=== PATIENT | male | born 1955 | race Caucasian/White ===

== ENCOUNTER 2017-02-14 00:16 | Observation (INO) | payer SELFPAY ==
[2017-02-14 00:42] LABS: RED BLOOD COUNT 4.6 M/UL (4.20-5.50); WHITE BLOOD COUNT 13.6 K/UL (4.5-11.0)
[2017-02-14 00:49] LABS: BUN/CREATININE RATIO 21 (0-10)
== END 2017-02-14 05:10 | disposition short-term general hospital (02) ==
LOC: ER1 00:16 → ZEROF 03:27
PROVIDERS: Family Medicine; ADMIT Internal Medicine
DX: R07.9 Chest pain, unspecified (principal); M54.9 Dorsalgia, unspecified; I10 Essential (primary) hypertension; F17.210 Nicotine dependence, cigarettes, uncomplicated; J44.9 Chronic obstructive pulmonary disease, unspecified; Z79.02 Long term (current) use of antithrombotics/antiplatelets; Z79.891 Long term (current) use of opiate analgesic; Z79.899 Other long term (current) drug therapy; Z88.8 Allergy status to other drugs, medicaments and biological substances; Z83.3 Family history of diabetes mellitus; Z82.49 Family history of ischemic heart disease and other diseases of the circulatory system
CPT/HCPCS: 71010; 80053; 82550; 82553; 83874; 83880; 84484; 85025; 93005; 96374; 99285; G0378; J2270; J7050; Q9963